=== PATIENT | female | born 1950 | race Caucasian/White ===

== ENCOUNTER 2016-08-17 02:02 | Observation (INO) | payer MEDICARE, OTHER ==
[~2016-08-17] VITALS: Ht 172.7 cm; Wt 68.0 kg
[2016-08-17 02:48] LABS: Basophils # (auto) 0.1 uL; Basophils % (auto) 1.2 % (0.0-2.0); DEFINITIVE VIEW TRANSMISSION; Eosinophils # (auto) 0.1 uL; Eosinophils % (auto) 1.8 % (0.0-7.0); Lymphocytes # (auto) 1.4 uL; Lymphocytes % (auto) 25.4 % (10.0-50.0); Mean Corpuscular Hemoglobin 35.2 pg (28.0-32.0); Mean Corpuscular Hgb Conc. 32.1 g/dL (32.0-36.0); Mean Corpuscular Volume 109.6 fL (80.0-100.0); Mean Platelet Volume 13.4 fL (7.4-10.4); Monocytes # (auto) 0.6 uL; Monocytes % (auto) 11.1 % (0.0-12.0); Neutrophils # (auto) 3.3 uL; Neutrophils % (auto) 60.5 % (37.0-80.0); Platelet Count (auto) 159 10^3/uL (140-450); Red Cell Distribution Width 16.3 % (11.6-16.0); SUSPECT VIEW TRANSMISSION; White Blood Cell 5.5 10^3/uL (4.4-10.8)
[2016-08-17 03:16] LABS: Albumin 2.3 g/dL (3.4-5.0); BUN/Creatinine Ratio 24.8; Calcium 8.2 mg/dL (8.5-10.1); Potassium 3.2 mmol/L (3.5-5.1)
[2016-08-17 03:19] LABS: Nucleated Red Blood Cells % 11.4 %
[2016-08-17 03:20] LABS: Bilirubin, Total 2.3 mg/dL (0.2-1.0); Total Protein 5.8 g/dL (6.4-8.2)
[2016-08-17 03:21] LABS: Anisocytosis Slight; Ovalocytes FEW; Platelet Estimate Adequate
[2016-08-17 03:32] LABS: INR 1.82 (0.9-1.15); Prothrombin Time 18.7 sec (9.37-12.3)
[2016-08-17] MEDS ORDERED: ONDANSETRON HCL 4 MG/2 ML VIAL ONE (04:00)
[2016-08-17] MEDS ORDERED: MORPHINE SULFATE 4 MG/ML SYRG ONE (04:00)
[2016-08-17] MEDS ORDERED: MORPHINE SULFATE 4 MG/ML SYRG IV ONE (04:15)
[2016-08-17] MEDS ORDERED: ONDANSETRON HCL 4 MG/2 ML VIAL IV ONE ×2 (04:15→09:30)
[2016-08-17] MEDS ORDERED: PANTOPRAZOLE SODIUM 80 MG in SODIUM CHL 0.9% 60 ML IV ONE (07:15)
[2016-08-17 08:57] LABS: Urine Bilirubin Negative (Negative); Urine Blood Negative /uL (Negative); Urine Color PINK (Yellow); Urine Glucose Normal (Normal); Urine Hyaline Cast MANY /lpf (0 - 2); Urine Ketone TRACE (Negative); Urine Mucus FEW (None Seen); Urine Nitrite Negative (Negative); Urine RBC 1 /hpf (0 - 4); Urine Squamous Epithelial Cell FEW /hpf (<5); Urine Urobilinogen Normal (Negative)
[2016-08-17] MEDS ORDERED: POTASSIUM CHL 10% (20 MEQ/15ML) ORAL SOLN PO ONE (09:00)
[2016-08-17] MEDS ORDERED: PIPERACILLIN-TAZOB 3.375GM 100 ML IV ONE (09:00)
[2016-08-17] MEDS ORDERED: MORPHINE SULF INJ 2 MG/ML SYRINGE 1ML IV ONE (09:30)
[2016-08-17 11:44] LABS: Lactic Acid w/Reflex 2.3 mmol/L (0.4-2.0)
[2016-08-17 11:58] LABS: REFLEX LACTIC ACID YES OR NO YES
[2016-08-17] MEDS ORDERED: SODIUM CHLORIDE 0.9% 1,000 ML IV ONE (13:30)
[2016-08-17 14:00] VITALS: BP 106/57
== END 2016-08-17 14:35 | disposition short-term general hospital (02) | DRG 378 ==
LOC: ER 02:02 → OVERFLOW 10:42 → ER 14:35
PROVIDERS: ADMIT Emergency Medicine; ATTEND Emergency Medicine
DX: K92.2 Gastrointestinal hemorrhage, unspecified (principal); E87.0 Hyperosmolality and hypernatremia; I11.0 Hypertensive heart disease with heart failure; I50.9 Heart failure, unspecified; R74.8 Abnormal levels of other serum enzymes; E87.6 Hypokalemia; E11.9 Type 2 diabetes mellitus without complications
CPT/HCPCS: 36415; 71010; 74176; 80053; 81001; 82140; 82962; 83605; 84484; 85025; 85610; 85730; 86850; 86900; 86901; 87040; 93005; 96365; 96366; 96368; 96375; 96376; C9113; G0378; J2405; J2543